=== PATIENT | male | born 1960 | race Two or more races ===

== ENCOUNTER 2023-11-14 16:18 | Emergency (ER) | payer OTHER ==
[~2023-11-14] VITALS: Ht 182.9 cm; Wt 104.3 kg
[2023-11-14 19:14] LABS: ABG PH 7.439 (7.35-7.45); ABG PO2 106.1 mmHg (80-100); ABG pCO2 29.2 mmHg (35-45); BASE EXCESS -3.4 mmol/l; BICARBONATE 19.3 mmol/l (23-25)
[2023-11-14 19:15] LABS: Tco2 20.2 mmol/l; allen test SATISFACTORY; o2 21 %; puncture site RADIAL RIGHT
[2023-11-14 19:17] LABS: SaO2 98.2 %
== END 2023-11-14 20:45 ==
LOC: ER 16:18
PROVIDERS: Nurse Practitioner Family
DX: S42.002A Fracture of unspecified part of left clavicle, initial encounter for closed fracture (principal); V00.831A Fall from motorized mobility scooter, initial encounter; Y93.89 Activity, other specified; Y92.413 State road as the place of occurrence of the external cause; L97.828 Non-pressure chronic ulcer of other part of left lower leg with other specified severity; E11.40 Type 2 diabetes mellitus with diabetic neuropathy, unspecified